=== PATIENT | male | born 1980 | race Caucasian/White ===

== ENCOUNTER 2018-03-08 14:37 | Emergency (ER) | payer SELFPAY ==
[2018-03-08 14:56] VITALS: BP 128/81
--- NOTE | 2018-03-08 14:56 | ED Physician Documentation ---
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 Now has lateral swelling, redness, pain, and a popping when he walks - points to area distal to fibula. Has had extra strength tylenol at 0500 and 1400 today, which helps a little. - ROS CONST: no problems - PAST HX Past History: other (back surgery) Allergies/Adverse Reactions: Allergies Allergy/AdvReac Type Severity Reaction Status Date / Time No Known Allergies Allergy Verified 03/08/18 14:57 Home Medications: Ambulatory Orders Medication Instructions Recorded Acetaminophen [Tylenol Extra 500 mg PO Q4 PRN 03/08/18 Strength] - SOCIAL HX Smoking History: cigarettes (2 PPD) - FAMILY HX Family History: no significant history - VITAL SIGNS Vital Signs: Vital Signs Temp Pulse Resp BP Pulse Ox 98.1 F 84 18 128/81 98 03/08/18 14:49 03/08/18 14:49 03/08/18 14:49 03/08/18 14:49 03/08/18 14:49 - REVIEWED ASSESSMENTS Nursing Assessment Reviewed: Yes Vitals Reviewed: Yes Progress - Progress Progress: Report Submission Date: Mar 08, 2018 3:17:53 PM HANDBAG FRAMES INSPECTOR Patient Study Name: MARTIN MONTAÑO Date: Mar 08, 2018 3:01:12 PM HANDBAG FRAMES INSPECTOR Modality Type: DX Gender: M Description: ANKLE 3 OR MORE VIEWS : Institution: [facility] Physician: ROMAN SANDERS - ER Three views of the left ankle Clinical history: Rolling injury yesterday. Pain and swelling. Findings: Examination of the left ankle in AP, lateral and oblique views fails to demonstrate evidence of fracture. Soft tissue swelling is seen laterally. Impression: 1. Soft tissue swelling. 2. No fracture. Electronically signed on Mar 08, 2018 3:17:53 PM HANDBAG FRAMES INSPECTOR by: Xiang Posada ED Results Lab/Radiology - Orders Orders: ED Orders Category Date Time Status Davy Wrap Affected Extremity 1T Care 03/08/18 15:29 Ordered ANKLE 3 VIEWS OR MORE [RAD] Stat Exams 03/08/18 Completed Lower Extremities Injury Phy - Physical Exam General Appearance: no acute distress Legs: bilateral: no evidence of injury Ankle: right: normal inspection, left: soft tissue tenderness, swelling (lat) Foot: left foot: normal inspection, no evidence of injury Gait: antalgic gait Neuro/Vascular/Tendon: no vascular compromise (L DP 2+), abnml color (erythema laterally, over ankle) Head/ENT: nml inspection Neck/Back: nml inspection Resp/CVS: no resp. distress Discharge Clincal Impression: Ankle sprain Qualifiers: Encounter type: initial encounter Involved ligament of ankle: unspecified ligament Laterality: left Qualified Code(s): S93.402A - Sprain of unspecified ligament of left ankle, initial encounter Referrals: Primary Doctor,No [Primary Care Provider] - 2 Days Additional Instructions: Keep the ankle elevated as much as possible. Ice to the sore area as often as 30minutes of each hour you are awake. You can take Tylenol 1000 mg up to three times a day. You can also take 600 mg of ibuprofen with food as often as 4 times a day. Condition: Good Disposition: 01 HOME, SELF-CARE Decision to Admit: NO Decision Time: 15:33
--- NOTE | 2018-03-08 15:18 | Diagnostic Imaging Report ---
ROMAN SANDERS [facility] [address] [facility] [address] [id number] Report Submission Date: Mar 08, 2018 3:17:53 PM INVERFORM MACHINE OPERATOR Patient Study Name: MARTIN MONTAÑO Date: Mar 08, 2018 3:01:12 PM INVERFORM MACHINE OPERATOR Modality Type: DX Gender: M Description: ANKLE 3 OR MORE VIEWS : Institution: [facility] Physician: ROMAN SANDERS Three views of the left ankle Clinical history: Rolling injury yesterday. Pain and swelling. Findings: Examination of the left ankle in AP, lateral and oblique views fails to demonstrate evidence of fracture. Soft tissue swelling is seen laterally. Impression: 1. Soft tissue swelling. 2. No fracture. Electronically signed on Mar 08, 2018 3:17:53 PM INVERFORM MACHINE OPERATOR by: Xiang GUERRA
== END 2018-03-08 15:36 | disposition home or self-care (01) ==
LOC: ED 14:37
DX: S93.402A Sprain of unspecified ligament of left ankle, initial encounter (principal); W00.0XXA Fall on same level due to ice and snow, initial encounter; Y93.89 Activity, other specified; Y92.9 Unspecified place or not applicable
CPT/HCPCS: 29540; 73610; 99282; 99283